=== PATIENT | male | born 1980 | race Caucasian/White ===

== ENCOUNTER 2022-10-29 04:30 | Observation (INO) | payer OTHER ==
[~2022-10-29] VITALS: Ht 188 cm; Wt 58.0 kg
--- NOTE | 2022-10-29 09:25 | NUR ---
PATIENT RESTING IN BED WITH AT BEDSIDE. WHEN ASKED ABOUT PAIN PT DOES STATE HE HAS PAIN BUT DENIES WANTING MEDICATIONS OR WARM BLANKET TO HELP. PT HAS HAD THE SURGERY CHECK LIST DONE AND HAS HAD SURGERY WIPE DOWN DONE. PT IS READY FOR SURGERY. PT CURRENTLY NPO WITH FLUIDS RUNNING.
--- NOTE | 2022-10-29 10:05 | NUR ---
PATIENT TAKEN DOWN TO DAY SURGERY AND THEN TO OR WITH NURSE ATIF. WENT WITH PATIENT.
--- NOTE | 2022-10-29 11:16 | NUR ---
ATTEMPTED TO SEE PATIENT. PATIENT IS IN THE OR. WILL TRY AGAIN LATER.
--- NOTE | 2022-10-29 12:05 | NUR ---
10/29/22 1205 Marcia Harris 1159 PATIENT ARRIVES TO PACU UNRESPONSIVE TO PAIN. ORAL AIRWAY IN PLACE, RN ALSO HOLDING ORAL AIRWAY TO MAINTAIN PATENT AIRWAY. RESP EVEN AND UNLABORED WITH INTERVENTION. MASK AT 6 LITERS, SATS 100%.
--- NOTE | 2022-10-29 12:41 | CONS ---
[facility] [address], [place] [address] Signed DATE OF CONSULTATION: 10/29/2022 CHIEF COMPLAINT: Right lower quadrant abdominal pain. HISTORY OF PRESENT ILLNESS: Lisa is a 42-year-old gentleman, otherwise healthy who developed right lower quadrant abdominal pain for 24 hours with some nausea. He finally came to emergency room for evaluation. He was tender in the right lower quadrant. White count was a little up at 12.6. CT scan shows his inflamed appendix. He was admitted early this morning and started on Rocephin and Flagyl. He has received pain medication as well. Overall, he is about the same. His is with him today. PAST MEDICAL HISTORY: None. PAST SURGICAL HISTORY: Bilateral lower extremity fasciotomies while playing football and track at [employer]. SOCIAL HISTORY: He does not smoke. He has an occasional drink. He likes [employer]. He has no primary care provider. He prefers the [facility]. Maia is his at [phone]. They have two children. He works in sales at [employer]. FAMILY HISTORY: Multiple cancers. REVIEW OF SYSTEMS: He had 10 systems reviewed. He told me the fasciotomies were elective. ALLERGIES: None. MEDICATIONS: None. PHYSICAL EXAMINATION: VITAL SIGNS: His blood pressure 136/73, his heart rate is 69, respiratory rate 16, temperature is 97.6. He is 99% on room air. He is 6 feet 2 inches at 58 kg with a body mass index of 16. GENERAL: Lisa is a 42-year-old gentleman lying supine in his hospital bed. He does not appear systemically ill or toxic. His is at the bedside. Electronically Signed By: JAMES STINSON MD 10/29/22 1241 PATIENT NAME: LISA TOTH CONSULTATION DATE OF : 84 REPORT #: [id number] PHYSICIAN: JAMES STINSON MD PCP: NO PRIMARY CARE PHYSICIAN REPORT IS CONFIDENTIAL AND NOT TO BE RELEASED WITHOUT AUTHORIZATION [facility] [address], [place] [address] Signed LUNGS: Clear to auscultation bilaterally. HEART: Regular rate and rhythm without murmurs. ABDOMEN: Soft and flat but he is tender to deep palpation just below McBurney's point. LABORATORY DATA: His white count is 12.6, neutrophils 82. Electrolytes unremarkable. COVID was negative. Albumin is 4.5. UA is negative. RADIOGRAPHIC STUDIES: CT scan of abdomen and pelvis is reviewed. I can see the inflamed appendix in the right lower quadrant. ASSESSMENT AND PLAN: Lisa is a 42-year-old gentleman who presents with acute appendicitis. We have discussed the location of function of the appendix. We have discussed laparoscopic versus open appendectomy. They understand the expected intraop and postop course. There is risk including, but not limited to bleeding, infection, scarring, change in contour of the skin, damage to bowel, appendiceal stump leak, postoperative intraabdominal abscess, incisional hernias and other unforeseen comorbidities. They have expressed understanding and would like to proceed. James Stinson MD ALB/MODL /[id number] cc: James Stinson MD Copies: JAMES STINSON MD ~ Electronically Signed By: JAMES STINSON MD 10/29/22 1241 PATIENT NAME: LISA TOTH CONSULTATION DATE OF : 84 REPORT #: [id number] PHYSICIAN: JAMES STINSON MD PCP: NO PRIMARY CARE PHYSICIAN REPORT IS CONFIDENTIAL AND NOT TO BE RELEASED WITHOUT AUTHORIZATION
--- NOTE | 2022-10-29 12:57 | NUR ---
INFORMED BY M/S STAFF THAT PT IS TAKEN TO OR FOR SURGERY. WILL FOLLOW
--- NOTE | 2022-10-29 13:02 | NUR ---
PATIENT BACK FROM SURGERY AT 1255. PATIENT IS AWAKE AND ON ROOM AIR FOR 97% SATS. X3 ABDOMINAL SCOPE SITES ARE INTACT WITH GUAZE AND TAPE, NO DRAINAGE IS NOTED. PER PACU NURSE, PATIENT WAS A DIFFICULT INTUBATION AND MAY EXPERIENCE THROAT IRRITATION. PATIENT GIVEN COFFEE, WATER AND ICE CHIPS. BEDSIDE PUSLE OX IS ON, SCDS ARE ON. PATIENT REPORTS 6/10 ABD PAIN, BUT IS VERY SLEEPY.
--- NOTE | 2022-10-29 14:08 | NUR ---
PT BCK FROM PACU TO . PT IS ALERT, ORIENTED AND VISITING WITH HIS . PT HAS PILLOW ON ABDOMEN, HAD GOOD VISIT. ALL QUESTIONS ASKED ANSWERED. GAVE DORI AND DennisPOST. WILL FOLLOW
[2022-10-29] MEDS ORDERED: HYDROCODON-ACE1 EAC8 PO (14:13)
[2022-10-29] MEDS ORDERED: IBU400 MG PO (14:16)
--- NOTE | 2022-10-29 14:34 | NUR ---
PATIENT STATING PAIN 5/10 AND WOULD LIKE ONE TABLET OF ORAL PAIN MEDICATION. PT TOLERATED CRACKERS AND CLEAR FLUIDS WELL. PT UP TO USE THE RESTROOM, NO COMPLICATIONS. STATES HE MOSTLY JUST FEELS SORE. PATIENT GIVEN FRESH WATER AND ICE. BLINDS CLOSED IN ROOM PATIENT IS GOING TO REST. 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 PT DENIES ANY CARES AT THIS TIME. POST OP VITALS DONE AT 1400.
--- NOTE | 2022-10-29 14:45 | NUR ---
THIS NURSE CALLED IN REGARDS TO PATIENTS DIET AND CHANGING DIET FROM CLEAR LIQUID TO FULL LIQUID. GIVES VERBAL TO DO SO. ADVISED THAT IF PATIENT WOULD LIKE TO GO HOME TODAY HE CAN BUT IF HE IS NOT READY HE CAN STAY. THIS NURSE WILL TALK TO PATIENT IN REGARDS TO THIS.
--- NOTE | 2022-10-29 15:02 | NUR ---
PATIENT EATTING CHOCOLATE PUDDING AND TOLERATING IT WELL. WAS GIVEN PAIN MEDICATION PRESCRIPTION SO THEY CAN GET IT FILLED IN [place] PATIENT GOES HOME TODAY.
--- NOTE | 2022-10-29 15:31 | NUR ---
PATIENT UP THE RESTROOM AND TO WALK THE HALLWAYS. PT STATES OVERALL PAIN IS BETTER BUT HAS SOME CRAMPING IN THE RLQ. PT DENIES NAUSEA OR VOMITING.
--- NOTE | 2022-10-29 16:14 | NUR ---
PATIENT WOULD LIKE TO WORK ON GETTING DISCHARGED. PHONE CALL TO VERBAL ORDER PLACED TO GO HOME. PATIENT CURRENTLY UP WALKING THE MED SURG FLOOR.
--- NOTE | 2022-10-29 16:58 | NUR ---
PATIENT WALKED OUT WITH /DAUGHTER AND KAMILLA CHARGE NURSE. PT HAS BELONGINGS, DISCHARGE PAPERWORK. IV HAS BEEN REMOVED. PT TOLERATING PAIN, AND FULL LIQUIDS.
--- NOTE | 2022-10-30 07:17 | OR ---
[facility] [address], [place] [address] Signed DATE OF OPERATION: 10/29/2022 SURGEON: James Stinson MD PREOPERATIVE DIAGNOSIS: Acute appendicitis. POSTOPERATIVE DIAGNOSIS: Acute suppurative appendicitis. PROCEDURE: Laparoscopic appendectomy. ESTIMATED BLOOD LOSS: None. INDICATIONS: Lisa is a 42-year-old young man, who is quite healthy. He noticed over the last 24 hours he was having increasing right lower quadrant abdominal pain associated with nausea. He came to the emergency room for evaluation. He was tender in the right lower quadrant with an elevated white blood cell count of 12.6. COVID was negative. CT scan showed the inflamed appendix in his right lower quadrant. I have been asked to admit him earlier this morning. He was given Rocephin and Flagyl, some pain medication IV fluids. I had met with Lisa and his and reviewed with them the above findings. We discussed the location and function of the appendix. We discussed laparoscopic versus open appendectomy. They understand the expected intraop and postop course. There is risk including, but not limited to bleeding, infection, scarring, change in contour of the skin, damage to bowel, appendiceal stump leak, postoperative intraabdominal abscess, incisional hernias and other unforeseen comorbidities. They had expressed understanding and wished to proceed. PROCEDURE IN DETAIL: Lisa was taken in the operating room and placed in the supine position under general endotracheal tube anesthesia. He was already on preoperative antibiotics along with subcutaneous Lovenox. SCDs were utilized. Cao catheter was inserted without difficulty with return of clear yellow urine. He was prepped and draped in the usual sterile fashion. All trocars were placed in usual positions under direct visualization without difficulty. His appendix and mesoappendix are somewhat adherent to the pelvic brim. It took just a minute to free that up bluntly and little bit of cautery. We cleared off the base of the appendix from the cecum. We divided that with a linear Electronically Signed By: JAMES STINSON MD 10/30/22 0717 PATIENT NAME: LISA TOTH OPERATIVE REPORT DATE OF : 84 REPORT #: [id number] PHYSICIAN: JAMES STINSON MD PCP: NO PRIMARY CARE PHYSICIAN REPORT IS CONFIDENTIAL AND NOT TO BE RELEASED WITHOUT AUTHORIZATION [facility] [address] [place], [place] [address] Signed stapler. We changed over to a vascular load. We divided the mesoappendix with good hemostasis on both of the staple lines. The appendix was placed into an EndoCatch bag. We had taken several pictures throughout for photodocumentation. We then used our laparoscopic suturing device to pass 0-Vicryl suture x2 on either side of the fascia of the right subcostal trocar site. This was tied down to close this fascia primarily. After this, all the gas was allowed to escape and all trocars were removed. The appendix had been passed off to our circulating nurse for photodocumentation. We closed the fascia of the supraumbilical trocar site with interrupted [id number] and simple 0-Vicryl sutures. Local anesthetic was injected into all trocar sites. Each trocar site was irrigated and suctioned out until clear. The skin and dermis of each trocar site were closed with interrupted 3-0 subcuticular Monocryl sutures. Dry gauze and tape was applied to all three incisions. Cao catheter was removed without difficulty. Lisa was awakened from his anesthesia, extubated in the OR, and taken to recovery room in stable condition. James Stinson MD ALB/MODL /[id number] cc: James Stinson MD Copies: JAMES STINSON MD ~ Electronically Signed By: JAMES STINSON MD 10/30/22 0717 PATIENT NAME: LISA TOTH OPERATIVE REPORT DATE OF : 84 REPORT #: [id number] PHYSICIAN: JAMES STINSON MD PCP: NO PRIMARY CARE PHYSICIAN REPORT IS CONFIDENTIAL AND NOT TO BE RELEASED WITHOUT AUTHORIZATION
--- NOTE | 2022-10-31 17:00 | PATH ---
[facility] [address] [place], [place] [address] Signed SPECIMEN(S): A APPENDIX SPECIMEN SOURCE: A. APPENDIX CLINICAL HISTORY: Acute appendicitis. FINAL PATHOLOGIC DIAGNOSIS: Appendix, appendectomy: - Acute suppurative appendicitis, periappendicitis and serositis. - Extensive mucosal necrosis. JVR:galilea:C2NR MICROSCOPIC EXAMINATION: Histologic sections of all submitted blocks are examined by light microscopy. These findings, together with the gross examination, support the pathologic diagnosis. GROSS DESCRIPTION: The specimen, labeled and designated "Gonzalo Toth, " and designated on the requisition "appendix," is received in formalin and consists of Specimen: Appendix with mesoappendix. Dimensions: 7.2 x 1.1 cm. Serosa: Dusky pink with areas of auguste-white exudate. Defect: Not grossly identified. Inking: Staple line is inked blue. Mucosa: Red and granular. Fecalith: Not grossly identified. Additional: None. [employer] sections are submitted in (A1). FB (under the direct supervision of a pathologist) The Gross Description was prepared using a voice recognition system. The report was reviewed for accuracy; however, sound-alike word errors, addition and/or deletions may occur. If there is any question about this report, please contact Client Services. PERFORMING LABORATORY: The technical component was performed by [facility], [address] [place] [id number] (CLIA# [id number]). Professional interpretation was performed by [facility] [place], PATIENT NAME: LISA TOTH PATHOLOGY DATE OF : 84 REPORT #: [id number] PHYSICIAN: [facility] PCP: NO PRIMARY CARE PHYSICIAN REPORT IS CONFIDENTIAL AND NOT TO BE RELEASED WITHOUT AUTHORIZATION [facility] [address] [place], [place] [address] [place], [place] [address], [place] [address] (CLIA#: [id number]). Diagnostician: Jeremiah Hester MD Pathologist Electronically Signed 10/31/2022 Copies: ~ PATIENT NAME: LISA TOTH PATHOLOGY DATE OF : 84 REPORT #: [id number] PHYSICIAN: [facility] PCP: NO PRIMARY CARE PHYSICIAN REPORT IS CONFIDENTIAL AND NOT TO BE RELEASED WITHOUT AUTHORIZATION
== END 2022-10-29 16:00 | disposition home or self-care (01) ==
LOC: ED 04:30 → MS 04:32
PROVIDERS: ADMIT Colon & Rectal Surgery; ATTEND Colon & Rectal Surgery
PROC: 0DTJ4ZZ Resection of Appendix, Percutaneous Endoscopic Approach (ICD-10-PCS; principal; 2022-10-29 09:15)
DX: K35.33 Acute appendicitis with perforation, localized peritonitis, and gangrene, with abscess (principal); Z20.822 Contact with and (suspected) exposure to COVID-19
CPT/HCPCS: 00840; 36415; 74177; 80053; 81003; 83690; 85025; 96374; 99285-25; A9270; G0378; J0330; J0696; J1100; J1650; J1885; J2250; J2405; J2704; J2765; J3010; J7030; J7121; Q9967; U0003